=== PATIENT | female | born 1960 | race Hispanic/Latino ===

== ENCOUNTER 2019-03-03 15:23 | Emergency (ER) | payer BC ==
[2019-03-03] MEDS ORDERED: IBUPROFEN 400 MG TAB ONE (16:03)
[2019-03-03] MEDS ORDERED: HYDROCODONE/APAP 7.5/325 MG TAB ONE (16:04)
--- NOTE | 2019-03-03 17:00 | RAD REPORT ---
EXAM DESCRIPTION: RAD - Foot Left 3 View - 03/03/2019 4:25 pm CLINICAL HISTORY: fall;Pain COMPARISON: None FINDINGS: Left knee, tibia/ fibula and foot- multiple projections are submitted Mild degenerative changes are present in the knee and ankle. Large plantar calcaneal spur. Moderate s oft tissue swelling is seen anterior to the superior tibia. No significant joint effusion present.
--- NOTE | 2019-03-03 17:03 | RAD REPORT ---
EXAM DESCRIPTION: RAD - Tib Fib Right - 03/03/2019 4:25 pm CLINICAL HISTORY: fall;Pain COMPARISON: No comparisons FINDINGS: No fracture or dislocation seen. Large plantar calcaneal spur.
--- NOTE | 2019-03-03 17:25 | ER ---
Nurse's Notes [facility] Name: Aliza Hall Age: 58 yrs Sex: Female : 1960 Arrival Date: 03/03/2019 Time: 15:24 Bed 23 Private MD: Diagnosis: Pain in left knee;Fall on same level from slipping, tripping and stumbling;Pain in lower leg-bilateral;Pain in left foot;Abrasion of other part of head-right lower jaw Presentation: 03/03 15:28 Presenting complaint: Patient states: I slipped on some applesauce at [employer], hit both of la1 my knees, my head, and scraped my right eat. Denies LOC. Transition of care: patient was not received from another setting of care. Onset of symptoms was March 03, 2019. Risk Assessment: Do you want to hurt yourself or someone else? Patient reports no desire to harm self or others. Initial Sepsis Screen: Does the patient meet any 2 criteria? No. Patient's initial sepsis screen is negative. Does the patient have a suspected source of infection? No. Patient's initial sepsis screen is negative. Care prior to arrival: None. 15:28 Method Of Arrival: Wheelchair la1 15:28 Acuity: LO 4 la1 Historical: - Allergies: 15:29 No Known Allergies; la1 - PMHx: 15:29 None; la1 - Immunization history:: Adult Immunizations up to date. - Social history:: Smoking status: Patient/guardian denies using tobacco. - Ebola Screening: : No symptoms or risks identified at this time. Screenin:56 Abuse screen: Denies threats or abuse. Denies injuries from another. Nutritional mg2 screening: No deficits noted. Tuberculosis screening: No symptoms or risk factors identified. Fall Risk Fall in past 12 months (25 points). Ambulatory Aid- None/Bed Rest/Nurse Assist (0 pts). Assessment: 15:54 General: Appears in no apparent distress. comfortable, Behavior is calm, cooperative. mg2 Pain: Complains of pain in left knee and right leg and right foot Pain does not radiate. Pain currently is 5 out of 10 on a pain scale. Quality of pain is described as aching, Pain began suddenly. Neuro: Level of Consciousness is awake, alert, obeys commands, Oriented to person, place, time, situation. Cardiovascular: Capillary refill < 3 seconds Patient's skin is warm and dry. Respiratory: Airway is patent Respiratory effort is even, unlabored, Respiratory pattern is regular, symmetrical. GI: No signs and/or symptoms were reported involving the gastrointestinal system. : No signs and/or symptoms were reported regarding the genitourinary system. EENT: No signs and/or symptoms were reported regarding the EENT system. Derm: Skin is intact, is healthy with good turgor, Skin is pink, warm \T\ dry. normal. Musculoskeletal: Circulation, motion, and sensation intact. Capillary refill < 3 seconds, Swelling present in left leg and left knee. Vital Signs: 15:29 BP 148 / 93; Pulse 82; Resp 16; Temp 98.3; Pulse Ox 100% on R/A; Weight 136.08 kg; la1 Height 5 ft. 1 in. (154.94 cm); 16:30 BP 150 / 78; Pulse 75; Resp 18; Pulse Ox 100% ; mg2 17:15 BP 135 / 78; Pulse 80; Resp 18; Temp 98; Pulse Ox 100% on R/A; mg2 15:29 Body Mass Index 56.68 (136.08 kg, 154.94 cm) la1 ED Course: 15:24 Patient arrived in ED. as 15:28 Triage completed. la1 15:29 Arm band placed on right wrist. la1 15:30 Colby Lassiter PA is PHCP. cp 15:30 Shahid Maria MD is Attending Physician. cp 15:52 Dennys Shah, NAVEED is Primary Nurse. mg2 16:05 Patient has correct armband on for positive identification. Pulse ox on. NIBP on. Door mg2 closed. Ice pack to injury. 16:05 No provider procedures requiring assistance completed. Patient did not have IV access mg2 during this emergency room visit. 16:25 XRAY Tib Fib RIGHT In Process Unspecified. EDMS 16:25 XRAY Knee LEFT 3 view In Process Unspecified. EDMS 16:25 XRAY Tib Fib LEFT In Process Unspecified. EDMS 16:25 XRAY Foot LEFT 3 View In Process Unspecified. EDMS 17:00 Crutch training done. Arun wrap to left knee. right leg Knee immobilizer applied on left mg2 knee. 17:22 Daniel Glover MD is Referral Physician. cp Administered Medications: 16:02 Drug: Ibuprofen 800 mg Route: PO; mg2 17:17 Follow up: Response: No adverse reaction mg2 16:02 Drug: Hydrocodone-Acetaminophen (7.5 mg-325 mg) 1 tabs Route: PO; mg2 17:17 Follow up: Response: No adverse reaction mg2 Outcome: 17:24 Discharge ordered by MD. cp 17:56 Discharged to home via wheelchair, with crutches, with family. mg2 17:56 Condition: stable 17:56 Discharge instructions given to patient, family, Instructed on discharge instructions, follow up and referral plans. medication usage, crutch walking, Demonstrated understanding of instructions, follow-up care, medications, crutch walking, Prescriptions given X 2. 17:57 Patient left the ED. mg2 Signatures: Dispatcher [employer] EDMS Elena Davis Lee RN RN la1 Colby Lassiter PA PA cp Dennys Shah RN RN mg2
--- NOTE | 2019-03-03 17:25 | EDPHYS ---
Physician Documentation [facility] Name: Aliza Hall Age: 58 yrs Sex: Female : 1960 Arrival Date: 03/03/2019 Time: 15:24 Bed 23 Private MD: ED Physician Shahid Maria HPI: 03/03 15:55 This 58 yrs old Female presents to ER via Wheelchair with complaints of Fall cp Injury. 15:55 Details of fall: The patient fell from an upright position, while walking, and struck a cp tile surface. Onset: The symptoms/episode began/occurred just prior to arrival. Associated injuries: The patient sustained injury to the head, abrasion, right lower leg, abrasion, left knee and left lower leg and left foot, decreased range of motion, painful injury, swelling. Severity of symptoms: in the emergency department the symptoms are unchanged. Patient reports slip and fall on applesauce on floor at local grocery store causing injuries. Patient reports striking left lower jaw area against shelf causing abrasion. Denies striking head, denies loss of consciousness. Historical: - Allergies: 15:29 No Known Allergies; la1 - PMHx: 15:29 None; la1 - Immunization history:: Adult Immunizations up to date. - Social history:: Smoking status: Patient/guardian denies using tobacco. - Ebola Screening: : No symptoms or risks identified at this time. ROS: 16:00 Constitutional: Negative for body aches, chills, fever, poor PO intake. cp 16:00 Eyes: Negative for injury, pain, redness, and discharge. cp 16:00 ENT: Negative for drainage from ear(s), ear pain, sore throat, difficulty swallowing, difficulty handling secretions. 16:00 Cardiovascular: Negative for chest pain, edema, palpitations. 16:00 Respiratory: Negative for cough, shortness of breath, wheezing. 16:00 Abdomen/GI: Negative for abdominal pain, nausea, vomiting, and diarrhea. 16:00 Back: Negative for pain at rest, pain with movement. 16:00 MS/extremity: Positive for abrasion, decreased range of motion, pain, swelling, tenderness, of the right leg and left leg, Negative for paresthesias. 16:00 Skin: Positive for abrasion(s), of the right lower jaw. 16:00 Neuro: Negative for altered mental status, headache, loss of consciousness, syncope, weakness. 16:00 All other systems are negative. Exam: 16:10 Constitutional: The patient appears in no acute distress, alert, awake, cp non-diaphoretic, non-toxic, well developed, well nourished, obese. 16:10 Head/face: Noted is abrasion(s), that are mild, of the posterior right jaw, Sinus cp tenderness, is not appreciated. 16:10 Eyes: Periorbital structures: appear normal, Pupils: equal, round, and reactive to light and accomodation, Extraocular movements: intact throughout, Conjunctiva: normal, no exudate, no injection, Lids and lashes: appear normal, bilaterally. 16:10 ENT: External ear(s): are unremarkable, Ear canal(s): are normal, clear, TM's: bulging, is not appreciated, bilaterally, dullness, bilaterally, erythema, is not appreciated, bilaterally, Nose: is normal, Mouth: Lips: moist, Oral mucosa: pink and intact, moist, Posterior pharynx: is normal, airway is patent, no erythema, no exudate. 16:10 Neck: C-spine: vertebral tenderness, is not appreciated, crepitus, is not appreciated, ROM/movement: is normal, is supple, without pain, no range of motions limitations, no nuchal rigidity. 16:10 Chest/axilla: Inspection: normal, Palpation: is normal, no crepitus, no tenderness. 16:10 Cardiovascular: Rate: normal, Rhythm: regular. 16:10 Respiratory: the patient does not display signs of respiratory distress, Respirations: normal, no use of accessory muscles, no retractions, no splinting, no tachypnea, Breath sounds: are clear throughout, no decreased breath sounds, no stridor, no wheezing. 16:10 Abdomen/GI: Inspection: abdomen appears normal, Palpation: abdomen is soft and non-tender, in all quadrants, voluntary guarding, is not appreciated. 16:10 Back: pain, is absent, ROM is normal, vertebral tenderness, is not appreciated. 16:10 Musculoskeletal/extremity: Extremities: grossly normal except: noted in the right lower leg: abrasion, tenderness, There is no evidence of deformity, noted in the left lower leg: pain, swelling, tenderness, noted in the left foot: tenderness, Joints: the left knee displays limited range of motion, painful range of motion, swelling, tenderness, the left ankle displays swelling, tenderness. 16:10 Neuro: Orientation: to person, place \T\ time. Mentation: is normal, Motor: moves all fours, strength is normal, Sensation: is normal. Vital Signs: 15:29 BP 148 / 93; Pulse 82; Resp 16; Temp 98.3; Pulse Ox 100% on R/A; Weight 136.08 kg; la1 Height 5 ft. 1 in. (154.94 cm); 16:30 BP 150 / 78; Pulse 75; Resp 18; Pulse Ox 100% ; mg2 17:15 BP 135 / 78; Pulse 80; Resp 18; Temp 98; Pulse Ox 100% on R/A; mg2 15:29 Body Mass Index 56.68 (136.08 kg, 154.94 cm) la1 Procedures: 17:50 Splinting: Splint applied to left knee using knee immobilizer, applied by nurse. cp Examined by me, post splint application: neurovascular intact, Patient tolerated well. MDM: 15:31 Patient medically screened. cp 16:00 Differential diagnosis: abrasion, closed head injury, contusion, fracture, multiple cp trauma. 17:23 Data reviewed: vital signs, nurses notes, radiologic studies, plain films. cp 17:23 Test interpretation: by ED physician or midlevel provider: plain radiologic studies. cp Counseling: I had a detailed discussion with the patient and/or guardian regarding: the historical points, exam findings, and any diagnostic results supporting the discharge/admit diagnosis, radiology results, the need for outpatient follow up, a orthopedic surgeon, to return to the emergency department if symptoms worsen or persist or if there are any questions or concerns that arise at home. Response to treatment: the patient's symptoms have markedly improved after treatment, VSS. Pain improved with meds. Xrays reviewed and no fractures noted. Will discharge to home for continued monitoring. 03/03 15:53 Order name: XRAY Tib Fib RIGHT; Complete Time: 17:20 cp 03/03 15:53 Order name: XRAY Knee LEFT 3 view cp 03/03 15:53 Order name: XRAY Tib Fib LEFT cp 03/03 15:53 Order name: XRAY Foot LEFT 3 View; Complete Time: 17:20 cp 03/03 17:21 Interpretation: Reviewed report. cp 03/03 17:05 Order name: Arun wrap-joint: biloateral knees; Complete Time: 17:56 cp 03/03 17:05 Order name: Knee Immobilizer: left knee; Complete Time: 17:56 cp 03/03 17:11 Order name: Crutches; Complete Time: 17:56 cp 03/03 17:11 Order name: Crutch Training; Complete Time: 17:56 cp Administered Medications: 16:02 Drug: Ibuprofen 800 mg Route: PO; mg2 17:17 Follow up: Response: No adverse reaction mg2 16:02 Drug: Hydrocodone-Acetaminophen (7.5 mg-325 mg) 1 tabs Route: PO; mg2 17:17 Follow up: Response: No adverse reaction mg2 Disposition: 18:00 Chart complete. cp Disposition: 03/03/19 17:24 Discharged to Home. Impression: Pain in left knee, Fall on same level from slipping, tripping and stumbling, Pain in lower leg - bilateral, Pain in left foot, Abrasion of other part of head - right lower jaw. - Condition is Stable. - Discharge Instructions: Abrasion, Elastic Bandage and RICE, Knee Immobilizer, Musculoskeletal Pain, Knee Pain. - Prescriptions for Ibuprofen 800 mg Oral Tablet - take 1 tablet by ORAL route every 8 hours As needed take with food; 30 tablet. Tramadol 50 mg Oral Tablet - take 1 tablet by ORAL route every 8 hours as needed; 20 tablet. - Work release form, Medication Reconciliation Form, Thank You Letter, Antibiotic Education, Prescription Opioid Use form. - Follow up: Daniel Glover MD; When: 2 - 3 days; Reason: Recheck today's complaints. - Problem is new. - Symptoms have improved. Addendum: 03/06/2019 00:42 Co-signature as Attending Physician, Shahid Maria MD. r n Signatures: Dispatcher [employer] EDShahid Alex MD MD rn Attema, Lee, RN RN la1 Cloby Lassiter PA PA cp Gardose, Michele, RN RN mg2 Corrections: (The following items were deleted from the chart) 03/03 17:57 17:24 03/03/2019 17:24 Discharged to Home. Impression: Pain in left knee; Fall on same mg2 level from slipping, tripping and stumbling; Pain in lower leg - bilateral; Pain in left foot; Abrasion of other part of head - right lower jaw. Condition is Stable. Forms are Medication Reconciliation Form, Thank You Letter, Antibiotic Education, Prescription Opioid Use. Follow up: Daniel Glover; When: 2 - 3 days; Reason: Recheck today's complaints. Problem is new. Symptoms have improved. cp
[2019-03-03 21:27] VITALS: BP 148/93; TEMP 98.3; O2SAT 100
--- NOTE | 2019-03-04 11:35 | RAD REPORT ---
EXAM DESCRIPTION: RAD - Tib Fib Left - 03/03/2019 4:25 pm CLINICAL HISTORY: Fall;Pain COMPARISON: None FINDINGS: Left knee, tibia/ fibula and foot- multiple projections are submitted Mild degenerative changes are present in the knee and ankle. Large plantar calcaneal spur. Moderate s oft tissue swelling is seen anterior to the superior tibia. No significant joint effusion present.
== END 2019-03-03 17:57 | disposition home or self-care (01) ==
LOC: ER 15:23
DX: S00.81XA Abrasion of other part of head, initial encounter (principal); M79.662 Pain in left lower leg; M79.661 Pain in right lower leg; M79.672 Pain in left foot; M25.562 Pain in left knee; W01.0XXA Fall on same level from slipping, tripping and stumbling without subsequent striking against object, initial encounter; Y93.89 Activity, other specified; Y92.512 Supermarket, store or market as the place of occurrence of the external cause
CPT/HCPCS: 99284

== ENCOUNTER 2019-12-28 05:55 | Emergency (ER) | payer BC ==
[2019-12-28] MEDS ORDERED: MORPHINE 2 MG/ML SYR ONE ×2 (07:29→08:57)
[2019-12-28] MEDS ORDERED: KETOROLAC 30 MG/ML INJ ONE (07:29)
[2019-12-28] MEDS ORDERED: ONDANSETRON 4 MG/2 ML VIAL ONE (07:30)
[2019-12-28] MEDS ORDERED: NA CHLORIDE 0.9% 500 ML ONE (07:30)
[2019-12-28 07:47] LABS: Absolute Lymphocytes (CBC) 1.4 K/uL (0.7-4.9); Basophils % 0.3 % (0-1.3); Hematocrit 45.2 % (36.0-45.0); Lymphocytes % 25.2 % (15.3-44.8); MPV 8.5 fL (7.6-11.3); RBC Red Blood Cell Count 5.15 M/uL (3.86-4.86)
[2019-12-28 08:04] LABS: ALT/SGPT 40 U/L (12-78); AST/SGOT 28 U/L (15-37); Albumin 3.6 g/dL (3.4-5.0); Alkaline Phosphatase 115 U/L (45-117); BUN Blood Urea Nitrogen 11 mg/dL (7-18); Bicarbonate 31 mmol/L (21-32); Bilirubin Total 0.7 mg/dL (0.2-1.0); Glucose Level 103 mg/dL (74-106); Potassium 3.8 mmol/L (3.5-5.1); Protein, Total 7.6 g/dL (6.4-8.2); Sodium Level 142 mmol/L (136-145); Uric Acid 4.6 mg/dL (2.6-6.0)
[2019-12-28] MEDS ORDERED: dexAMETHasone 10 MG/ML VIAL ONE (08:17)
--- NOTE | 2019-12-28 09:49 | RAD REPORT ---
EXAM DESCRIPTION: RAD - Foot Left 3 View - 12/28/2019 7:46 am CLINICAL HISTORY: PAIN, nontraumatic foot pain, non weight-bearing due to pain COMPARISON: Foot Left 3 View dated 03/03/2019 FINDINGS: No fracture, dislocation or periosteal reaction. No acute or destructive bony process. La rge plantar spur is present. Minimal spurring in the articular margins of the tarsal bones. No air or foreign body in the soft tissues. Mild edema is evident in the soft tissues but this is not clearly different from comparison. IMPRESSION: No acute bone or joint finding. Patient has large plantar spur. No significant change from comparison.
--- NOTE | 2019-12-28 09:50 | ER ---
Nurse's Notes [facility] Name: Aliza Hall Age: 59 yrs Sex: Female : 1960 Arrival Date: 12/28/2019 Time: 05:56 Bed 20 Private MD: Diagnosis: Pain in left foot Presentation: 12/27 06:26 Chief complaint: Patient states: " Monday I noticed my left foot started hurting by vc I could walk on it but it hurt really bad. Come yesterday afternoon I could barely put any weight on it because it hurt so bad. I have been off of it yesterday since 4 pm and it hasn't gotten any better. I have always had trouble with my legs but this is bad.". Coronavirus screen: At this time, the client does not indicate any symptoms associated with coronavirus-19. Ebola Screen: No symptoms or risks identified at this time. Initial Sepsis Screen: Does the patient meet any 2 criteria? No. Patient's initial sepsis screen is negative. Does the patient have a suspected source of infection? No. Patient's initial sepsis screen is negative. Risk Assessment: Do you want to hurt yourself or someone else? Patient reports no desire to harm self or others. Onset of symptoms was December 24, 2019. 06:26 Method Of Arrival: Wheelchair vc 06:26 Acuity: LO 3 vc Triage Assessment: 06:32 General: Appears in no apparent distress. uncomfortable, obese, Behavior is calm, vc cooperative, appropriate for age. Pain: Complains of pain in left foot Pain does not radiate. Pain currently is 10 out of 10 on a pain scale. Quality of pain is described as pressure, sharp, Pain began gradually, Is continuous, Alleviated by rest, Aggravated by increased activity, repositioning, weight bearing. Historical: - Allergies: 06:31 No Known Allergies; vc - Home Meds: 06:31 None [Active]; vc - PMHx: 06:31 DVT; vc - PSHx: 06:31 None; vc - Immunization history:: Adult Immunizations up to date. - Social history:: Smoking status: Patient denies any tobacco usage or history of. Screenin:32 Abuse screen: Denies threats or abuse. Nutritional screening: No deficits noted. vc Tuberculosis screening: No symptoms or risk factors identified. Fall Risk None identified. Assessment: 06:34 General: Appears in no apparent distress. Behavior is calm, cooperative, appropriate vc for age. Pain: Complains of pain in left foot. Neuro: Level of Consciousness is awake, alert, obeys commands, Oriented to person, place, time, situation, Appropriate for age. Cardiovascular: Capillary refill < 3 seconds is sluggish Pulses are palpable in right dorsalis pedis artery and left dorsalis pedis artery Edema is noted to left leg and foot. Respiratory: Airway is patent Respiratory effort is even, unlabored, Respiratory pattern is regular, symmetrical. GI: No signs and/or symptoms were reported involving the gastrointestinal system. : No signs and/or symptoms were reported regarding the genitourinary system. Derm: Skin is intact, Skin is dusky, Skin temperature is cool. Musculoskeletal: Range of motion: limited in left ankle. 08:20 Reassessment: Patient appears in no apparent distress at this time. Patient and/or em family updated on plan of care and expected duration. Pain level reassessed. Patient is alert, oriented x 3, equal unlabored respirations, skin warm/dry/pink. reports pain is the same, 10/08 provider notified. 09:02 Reassessment: US at bedside. ss 10:00 Reassessment: Patient appears in no apparent distress at this time. Patient and/or em family updated on plan of care and expected duration. Pain level reassessed. Patient is alert, oriented x 3, equal unlabored respirations, skin warm/dry/pink. Patient states feeling better. 10:05 Reassessment: pt will apply boot at home, does not want it on currently. em Vital Signs: 06:26 BP 124 / 65; Pulse 70; Resp 12; Temp 98.4(O); Pulse Ox 97% on R/A; Weight 131.54 kg; vc Height 5 ft. 1 in. (154.94 cm); Pain 10/10; 08:20 BP 115 / 65; Pulse 74; Resp 18; Pulse Ox 99% on R/A; Pain 6/10; em 09:25 BP 131 / 68; Pulse 64; Resp 18; Pulse Ox 99% on R/A; em 06:26 Body Mass Index 54.79 (131.54 kg, 154.94 cm) vc ED Course: 05:56 Patient arrived in ED. cf2 06:25 Saumya Harris, NAVEED is Primary Nurse. vc 06:31 Triage completed. vc 06:33 Arm band placed on. vc 06:33 Patient has correct armband on for positive identification. Bed in low position. Call vc light in reach. Pulse ox on. NIBP on. Warm blanket given. 06:46 Colby Monson MD is Attending Physician. carine 07:46 Foot Left 3 View XRAY In Process Unspecified. EDMS 08:12 Colby Lassiter PA is PHCP. cp 09:29 US Extremity Venous W Compression Fabricio In Process Unspecified. EDMS 09:49 Dileep Cameron DPM is Referral Physician. cp 10:18 No provider procedures requiring assistance completed. IV discontinued, intact, em bleeding controlled, No redness/swelling at site. Pressure dressing applied. Administered Medications: 07:30 Drug: NS 0.9% 500 ml Route: IV; Rate: bolus; Site: right antecubital; em 09:00 Follow up: IV Status: Completed infusion; IV Intake: 500ml em 07:32 Drug: Zofran (Ondansetron) 4 mg Route: IVP; Site: right antecubital; em 08:20 Follow up: Response: No adverse reaction em 07:33 Drug: morphine 2 mg Route: IVP; Site: right antecubital; em 08:20 Follow up: Response: No adverse reaction; Pain is unchanged, physician notified; RASS: em Alert and Calm (0) 07:35 Drug: TORadol 30 mg Route: IVP; Site: right antecubital; em 08:20 Follow up: Response: No adverse reaction; Pain is unchanged, physician notified em 08:59 Drug: Decadron - Dexamethasone 10 mg Route: IVP; Site: right antecubital; em 10:00 Follow up: Response: No adverse reaction em 09:01 Drug: morphine 2 mg Route: IVP; Site: right antecubital; em 10:00 Follow up: Response: No adverse reaction; Marked relief of symptoms; Pain is decreased; em RASS: Alert and Calm (0) Intake: 09:00 IV: 500ml; Total: 500ml. em Outcome: 09:49 Discharge ordered by . cp 10:20 Discharged to home via wheelchair. em 10:20 Condition: good 10:20 Discharge instructions given to patient, Instructed on discharge instructions, follow up and referral plans. no drinking with medication, no driving heavy equipment, medication usage, Demonstrated understanding of instructions, follow-up care, medications, Prescriptions given X 3. 10:22 Patient left the ED. em Signatures: Dispatcher [employer] Colby Santos MD MD cha Munoz, Edgar RN RN Mariela Pompa RN RN ss Page, Corey, PA PA cp Frazier, Celesta [facility] Saumya Harris RN RN vc
--- NOTE | 2019-12-28 09:50 | EDPHYS ---
Physician Documentation [facility] Name: Aliza Hall Age: 59 yrs Sex: Female : 1960 Arrival Date: 12/28/2019 Time: 05:56 Bed 20 Private MD: SHAHEED Physician Colby Monson HPI: 12/27 07:41 This 59 yrs old Female presents to ER via Wheelchair with complaints of Foot carine Pain. 07:41 The patient presents with decreased range of motion, pain, that is acute. The carine complaints affect the left foot, arch of left foot. Context: The problem was sustained at an unknown location, resulted from an unknown cause, Mechanism of Injury: Unknown the patient can partially bear weight, must have assistance. Historical: - Allergies: 06:31 No Known Allergies; vc - Home Meds: :31 None [Active]; vc - PMHx: : DVT; vc - PSHx: 06:31 None; vc - Immunization history:: Adult Immunizations up to date. - Social history:: Smoking status: Patient denies any tobacco usage or history of. ROS: 07:47 Constitutional: Negative for fever, chills, and weight loss, Eyes: Negative for injury, acrine pain, redness, and discharge, ENT: Negative for injury, pain, and discharge, Neck: Negative for injury, pain, and swelling, Cardiovascular: Negative for chest pain, palpitations, and edema, Respiratory: Negative for shortness of breath, cough, wheezing, and pleuritic chest pain, Abdomen/GI: Negative for abdominal pain, nausea, vomiting, diarrhea, and constipation, Back: Negative for injury and pain, : Negative for injury, bleeding, discharge, and swelling, Skin: Negative for injury, rash, and discoloration, Neuro: Negative for headache, weakness, numbness, tingling, and seizure, Psych: Negative for depression, anxiety, suicide ideation, homicidal ideation, and hallucinations, Allergy/Immunology: Negative for hives, rash, and allergies, Endocrine: Negative for neck swelling, polydipsia, polyuria, polyphagia, and marked weight changes, Hematologic/Lymphatic: Negative for swollen nodes, abnormal bleeding, and unusual bruising. 07:47 MS/extremity: Positive for decreased range of motion, pain, tenderness, of the lateral side of left foot, instep of left foot and arch of left foot. Exam: 07:47 Constitutional: This is a well developed, well nourished patient who is awake, alert, carine and in no acute distress. Head/Face: Normocephalic, atraumatic. Eyes: Pupils equal round and reactive to light, extra-ocular motions intact. Lids and lashes normal. Conjunctiva and sclera are non-icteric and not injected. Cornea within normal limits. Periorbital areas with no swelling, redness, or edema. ENT: Nares patent. No nasal discharge, no septal abnormalities noted. Tympanic membranes are normal and external auditory canals are clear. Oropharynx with no redness, swelling, or masses, exudates, or evidence of obstruction, uvula midline. Mucous membranes moist. Neck: Trachea midline, no thyromegaly or masses palpated, and no cervical lymphadenopathy. Supple, full range of motion without nuchal rigidity, or vertebral point tenderness. No Meningismus. Chest/axilla: Normal chest wall appearance and motion. Nontender with no deformity. No lesions are appreciated. Cardiovascular: Regular rate and rhythm with a normal S1 and S2. No gallops, murmurs, or rubs. Normal PMI, no JVD. No pulse deficits. Respiratory: Lungs have equal breath sounds bilaterally, clear to auscultation and percussion. No rales, rhonchi or wheezes noted. No increased work of breathing, no retractions or nasal flaring. Abdomen/GI: Soft, non-tender, with normal bowel sounds. No distension or tympany. No guarding or rebound. No evidence of tenderness throughout. Back: No spinal tenderness. No costovertebral tenderness. Full range of motion. Skin: Warm, dry with normal turgor. Normal color with no rashes, no lesions, and no evidence of cellulitis. Neuro: Awake and alert, GCS 15, oriented to person, place, time, and situation. Cranial nerves II-XII grossly intact. Motor strength 5/5 in all extremities. Sensory grossly intact. Cerebellar exam normal. Normal gait. Psych: Awake, alert, with orientation to person, place and time. Behavior, mood, and affect are within normal limits. 07:47 Musculoskeletal/extremity: Extremities: noted in the lateral side of left foot, instep of left foot and arch of left foot: decreased ROM, pain, ROM: limited active range of motion, limited passive range of motion, in the left foot, Circulation is intact in all extremities. Pulses: noted to be 4+ in the bilateral radial, brachial, femoral, popliteal, posterior tibial and and dorsalis pedis arteries., Sensation intact. Compartment Syndrome exam of affected extremity: is normal. no numbness, no tingling, no sensation deficit, no palor, no weak pulses, DVT Exam: no swelling, negative Homans' sign noted on exam, no appreciated bluish discoloration, no erythema, no increased warmth, pain, tenderness. Vital Signs: 06:26 BP 124 / 65; Pulse 70; Resp 12; Temp 98.4(O); Pulse Ox 97% on R/A; Weight 131.54 kg; vc Height 5 ft. 1 in. (154.94 cm); Pain 10/10; 08:20 BP 115 / 65; Pulse 74; Resp 18; Pulse Ox 99% on R/A; Pain 6/10; em 09:25 BP 131 / 68; Pulse 64; Resp 18; Pulse Ox 99% on R/A; em 06:26 Body Mass Index 54.79 (131.54 kg, 154.94 cm) vc MDM: 06:46 Patient medically screened. [facility] 07:49 Data reviewed: vital signs, nurses notes, lab test result(s), radiologic studies, carine doppler, plain films. 09:21 Test interpretation: by ED physician or midlevel provider: xrays of left foot negative cp for fracture. 12/27 07:11 Order name: CBC with Diff; Complete Time: 07:54 [facility] 12/27 08:28 Interpretation: Normal except: RBC 5.15; HGB 15.1; HCT 45.2. cp 12/27 07:11 Order name: Comprehensive Metabolic Panel; Complete Time: 08:27 [facility] 12/27 08:27 Interpretation: Normal except: A/G 0.9; GLOB 4.0. cp 12/27 07:11 Order name: Foot Left 3 View XRAY [facility] 12/27 07:11 Order name: US Extremity Venous W Compression Fabricio [facility] 12/27 07:11 Order name: Uric Acid; Complete Time: 08:27 [facility] 12/27 07:50 Order name: Sed Rate; Complete Time: 09:19 [facility] 12/27 07:54 Order name: Walking boot: short boot; Complete Time: 10:21 [facility] Administered Medications: 07:30 Drug: NS 0.9% 500 ml Route: IV; Rate: bolus; Site: right antecubital; em 09:00 Follow up: IV Status: Completed infusion; IV Intake: 500ml em 07:32 Drug: Zofran (Ondansetron) 4 mg Route: IVP; Site: right antecubital; em 08:20 Follow up: Response: No adverse reaction em 07:33 Drug: morphine 2 mg Route: IVP; Site: right antecubital; em 08:20 Follow up: Response: No adverse reaction; Pain is unchanged, physician notified; RASS: em Alert and Calm (0) 07:35 Drug: TORadol 30 mg Route: IVP; Site: right antecubital; em 08:20 Follow up: Response: No adverse reaction; Pain is unchanged, physician notified em 08:59 Drug: Decadron - Dexamethasone 10 mg Route: IVP; Site: right antecubital; em 10:00 Follow up: Response: No adverse reaction em 09:01 Drug: morphine 2 mg Route: IVP; Site: right antecubital; em 10:00 Follow up: Response: No adverse reaction; Marked relief of symptoms; Pain is decreased; em RASS: Alert and Calm (0) Disposition: 12/28 08:45 Co-signature as Attending Physician, Colby Monson MD I agree with the assessment and [facility] plan of care. Disposition: 12/28/19 09:49 Discharged to Home. Impression: Pain in left foot. - Condition is Stable. - Discharge Instructions: Musculoskeletal Pain, Pain Without a Known Cause, Cryotherapy, [id number]-[id number], Cryotherapy, Foot Pain. - Prescriptions for Tylenol- Codeine #3 300-30 mg Oral Tablet - take 2 tablets by ORAL route every 6 hours As needed; 20 tablet. Diclofenac Sodium 75 mg Oral Tablet, Delayed Release (E.C.) - take 1 tablet by ORAL route 2 times per day; 14 tablet. Medrol (Tay) 4 mg Oral Tablets, Dose Pack - take 1 tablet by ORAL route as directed - follow package instructions; 1 packet. - Medication Reconciliation Form, Thank You Letter, Antibiotic Education, Prescription Opioid Use form. - Follow up: Private Physician; When: 2 - 3 days; Reason: Recheck today's complaints, Continuance of care, Re-evaluation by your physician. Follow up: Dr. Dileep Cameron; When: 2 - 3 days; Reason: Recheck today's complaints, Re-evaluation by your physician. - Problem is new. - Symptoms have improved. Signatures: Dispatcher [employer] Colby Santos MD MD cha Munoz, Edgar RN RN Colby Gonzalez, PA Saumya Austin cp, RN RN vc Corrections: (The following items were deleted from the chart) 12/27 08: 08:27 Within normal limits. cp cp 08: 08: Normal except. cp cp 08: 08: Normal except: A/G 0.9. cp cp 10:22 09:49 12/28/2019 09:49 Discharged to Home. Impression: Pain in left foot. Condition is em Stable. Discharge Instructions: Musculoskeletal Pain, Pain Without a Known Cause, Cryotherapy, [id number]-[id number], Cryotherapy, Foot Pain. Prescriptions for Tylenol-Codeine #3 300-30 mg Oral Tablet - take 2 tablets by ORAL route every 6 hours As needed; 824 tablet, Diclofenac Sodium 75 mg Oral Tablet, Delayed Release (E.C.) - take 1 tablet by ORAL route 2 times per day; 14 tablet, Medrol (Tay) 4 mg Oral Tablets, Dose Pack - take 1 tablet by ORAL route as directed - follow package instructions; 1 packet. and Forms are Medication Reconciliation Form, Thank You Letter, Antibiotic Education, Prescription Opioid Use. Follow up: Private Physician; When: 2 - 3 days; Reason: Recheck today's complaints, Continuance of care, Re-evaluation by your physician. Follow up: Dr. Dileep Cameron; When: 2 - 3 days; Reason: Recheck today's complaints, Re-evaluation by your physician. Problem is new. Symptoms have improved. cp
--- NOTE | 2019-12-28 12:03 | RAD REPORT ---
EXAM DESCRIPTION: US - Extrem Venous W Compress Fabricio - 12/28/2019 11:58 am CLINICAL HISTORY: PAIN COMPARISON: None. TECHNIQUE: Real-time sonographic evaluation of the bilateral lower extremity common femoral, superfi cial femoral, popliteal and posterior tibial veins was performed. FINDINGS: Normal compressibility, flow augmentation, phasic flow and spontaneous flow are identified in the left and right lower extremity common femoral, superficial femoral, popliteal and posterior t ibial veins. No intraluminal filling defects seen. IMPRESSION: No DVT in either lower extremity.
[2019-12-31 22:14] VITALS: TEMP 98.4
[2019-12-31 22:15] VITALS: O2SAT 99
[2019-12-31 22:16] VITALS: BP 131/68
== END 2019-12-28 10:22 | disposition home or self-care (01) ==
LOC: ER 05:55
DX: M79.672 Pain in left foot (principal); Z86.718 Personal history of other venous thrombosis and embolism
CPT/HCPCS: 96361; 85025; 36415; 84550; 85652; 80053; 73630; 93970; 96375; 96374; 99284; J1100; J2270 ×2; J7040; J2405

== ENCOUNTER 2020-06-29 15:36 | Emergency (ER) | payer BC ==
--- OUTSIDE RECORDS SUMMARY | 2020-06-29 15:39 | XMS REPORT | Continuity of Care Document ---
:1960 Author Organization [facility] t Address [address] [place] [address] Care Team Providers Name Role Phone Lab, Fam Pob I Attending Clinician Unavailable Doctor Unassigned, Name Attending Clinician Unavailable Problems This patient has no known problems. Allergies, Adverse Reactions, Alerts This patient has no known allergies or adverse reactions. Medications This patient has no known medications. Procedures This patient has no known procedures. Encounters Start End Encounter Admission Attending Care Care Encounter Source Date/Time Date/Time Type Type Clinicians Facility Department ID 2020-06-28 2020-06-28 Laboratory Lab, [facility] [id number] 15:01:56 15:21:56 Only Fam Pob I Health [id number] [place] [id number] [facility]io [id number] [address] 2020-06-28 2020-06-28 Letter Doctor BERNARD [id number] 00:00:00 00:00:00 (Out) Unassigned, DEANN [id number] [facility] [id number] Results This patient has no known results.
[2020-06-29 16:42] LABS: Absolute Lymphocytes (CBC) 1.2 K/uL (0.7-4.9); Basophils % 0.4 % (0-1.3); Hematocrit 49.9 % (36.0-45.0); Lymphocytes % 40.5 % (15.3-44.8); MPV 8.8 fL (7.6-11.3); RBC Red Blood Cell Count 5.68 M/uL (3.86-4.86)
[2020-06-29 16:46] LABS: Protime INR 0.99
[2020-06-29 16:59] LABS: ALT/SGPT 47 U/L (12-78); AST/SGOT 39 U/L (15-37); Albumin 3.5 g/dL (3.4-5.0); Alkaline Phosphatase 133 U/L (45-117); BUN Blood Urea Nitrogen 10 mg/dL (7-18); Bicarbonate 31 mmol/L (21-32); Bilirubin Direct 0.1 mg/dL (0-0.2); Bilirubin Total 0.4 mg/dL (0.2-1.0); Ferritin 75.1 ng/mL (8-388); Glucose Level 89 mg/dL (74-106); Lipase 116 U/L (73-393); Potassium 3.7 mmol/L (3.5-5.1); Protein, Total 7.6 g/dL (6.4-8.2); Sodium Level 144 mmol/L (136-145); Troponin (Emerg Dept Use Only) < 0.02 ng/mL (0.0-0.045)
[2020-06-29] MEDS ORDERED: NA CHLORIDE 0.9% 500 ML ONE (17:19)
--- NOTE | 2020-06-29 17:35 | RAD REPORT ---
EXAM DESCRIPTION: RAD - Chest Single View - 06/29/2020 5:29 pm CLINICAL HISTORY: DYSPNEA Chest pain. COMPARISON: No comparisons FINDINGS: Portable technique limits examination quality. Moderate opacity is seen in the right mid lung laterally likely representing infiltrate/pneumonia. Th e heart is upper limit of normal in size. No displaced fractures.
--- NOTE | 2020-06-29 18:12 | RAD REPORT ---
EXAM DESCRIPTION: CT - Chest For Pe Angio - 06/29/2020 6:05 pm CLINICAL HISTORY: Chest pain. DYSPNEA COMPARISON: No comparisons TECHNIQUE: CT angiogram of the pulmonary arteries was performed with MIP. All CT scans are performed using dose optimization technique as appropriate and may include automated exposure control or mA/KV adjustment according to patient size. FINDINGS: No evidence of pulmonary thromboembolism. No acute aortic finding demonstrated. There is a moderate sized area of consolidation in the posterior right upper lobe. There is a small i nfiltrate in the medial left lung base. No significant pericardial or pleural fluid. No concerning bony finding. Prominent left hepatic lobe cyst. IMPRESSION: No evidence of pulmonary thromboembolism. Moderate sized area of lung consolidation posterior right upper lobe most likely representing pneumon ia. Small infiltrate also present medial left base.
--- NOTE | 2020-06-29 18:23 | EDPHYS ---
Physician Documentation [facility] Name: Aliza Hall Age: 60 yrs Sex: Female : 1960 Arrival Date: 06/29/2020 Time: 15:39 Bed 5 Private MD: ED Physician Shahid Maria HPI: 06/29 18:46 This 60 yrs old Female presents to ER via Ambulatory with complaints of kb Shortness Of Breath - covid+. 18:46 The patient has shortness of breath at rest. Onset: The symptoms/episode began/occurred kb yesterday, and became worse today. Duration: The symptoms are continuous. The patient's shortness of breath is aggravated by exertion, is alleviated by rest. Associated signs and symptoms: Pertinent positives: non-productive cough. Severity of symptoms: At their worst the symptoms were moderate in the emergency department the symptoms are unchanged. The patient has not experienced similar symptoms in the past. The patient has been recently seen by a physician: yesterday, with similar presenting complaints, and apparently given a diagnosis of covid. Pt reports shortness of breath and cough. STates she tested positive for covid yesterday. measured o2 sat at home today and it was 70 so she came in. Historical: - Allergies: 15:49 No Known Allergies; ca1 - Home Meds: 15:49 None [Active]; ca1 - PMHx: 15:49 DVT; ca1 - PSHx: 15:49 Tonsillectomy; Tubal ligation; ca1 - Immunization history:: Flu vaccine is up to date. - Social history:: Smoking status: Patient denies any tobacco usage or history of. ROS: 18:43 Constitutional: Negative for fever, chills, and weight loss, Cardiovascular: Negative kb for chest pain, palpitations, and edema, Abdomen/GI: Negative for abdominal pain, nausea, vomiting, diarrhea, and constipation, Back: Negative for injury and pain, MS/Extremity: Negative for injury and deformity, Skin: Negative for injury, rash, and discoloration, Neuro: Negative for headache, weakness, numbness, tingling, and seizure. 18:43 Respiratory: Positive for cough, dyspnea on exertion, shortness of breath. Exam: 18:23 ECG was reviewed by the Attending Physician. kb 18:45 Constitutional: This is a well developed, well nourished patient who is awake, alert, kb and in no acute distress. Head/Face: Normocephalic, atraumatic. Chest/axilla: Normal chest wall appearance and motion. Nontender with no deformity. No lesions are appreciated. Cardiovascular: Regular rate and rhythm with a normal S1 and S2. No gallops, murmurs, or rubs. Normal PMI, no JVD. No pulse deficits. Respiratory: Lungs have equal breath sounds bilaterally, clear to auscultation and percussion. No rales, rhonchi or wheezes noted. No increased work of breathing, no retractions or nasal flaring. Abdomen/GI: Soft, non-tender, with normal bowel sounds. No distension or tympany. No guarding or rebound. No evidence of tenderness throughout. Skin: Warm, dry with normal turgor. Normal color with no rashes, no lesions, and no evidence of cellulitis. MS/ Extremity: Pulses equal, no cyanosis. Neurovascular intact. Full, normal range of motion. 18:45 Neuro: Orientation: is normal, Mentation: is normal, Motor: is normal, Sensation: is normal, Gait: is steady. Vital Signs: 15:46 BP 126 / 106; Pulse 83; Resp 18 S; Temp 97.7(TE); Pulse Ox 98% on R/A; Weight 131.54 kg ca1 (R); Height 5 ft. 1 in. (154.94 cm) (R); Pain 6/10; 16:51 BP 129 / 73; Pulse 78; Resp 18; Pulse Ox 96% on R/A; mh5 18:00 BP 147 / 88; Pulse 81; Resp 16; Pulse Ox 99% ; bp 15:46 Body Mass Index 54.79 (131.54 kg, 154.94 cm) ca1 MDM: 15:51 Patient medically screened. kb 18:42 Data reviewed: vital signs, nurses notes. Data interpreted: Pulse oximetry: on room air kb is 99 %. Interpretation: normal. Counseling: I had a detailed discussion with the patient and/or guardian regarding: the historical points, exam findings, and any diagnostic results supporting the discharge/admit diagnosis, lab results, radiology results, the need for outpatient follow up, a family practitioner, to return to the emergency department if symptoms worsen or persist or if there are any questions or concerns that arise at home. 18:49 ED course: Pt's oxygen sat 98% after walking from lobby to room. o2 sat 96-100% during kb entire ER visit. Educated on diagnostic results and plan to treat outpatient. Educated to return for worsening symptoms or concerns. . 06/29 15:51 Order name: BMP kb 06/29 15:51 Order name: C-Reactive Protein kb 06/29 15:51 Order name: CBC with Diff kb 06/29 15:51 Order name: D-Dimer kb 06/29 15:51 Order name: Ferritin kb 06/29 15:51 Order name: Lactate kb 06/29 15:51 Order name: LFT's; Complete Time: 17:00 kb 06/29 15:51 Order name: Lipase; Complete Time: 17:00 kb 06/29 15:51 Order name: Procalcitonin; Complete Time: 17:14 kb 06/29 15:51 Order name: PT-INR; Complete Time: 16:58 kb 06/29 15:51 Order name: Ptt, Activated; Complete Time: 16:58 kb 06/29 15:51 Order name: Troponin (emerg Dept Use Only); Complete Time: 17:00 kb 06/29 15:52 Order name: Blood Culture EDMS 06/29 15:51 Order name: CXR XRAY; Complete Time: 17:36 kb 06/29 15:51 Order name: EKG; Complete Time: 15:53 kb 06/29 15:51 Order name: Cardiac monitoring; Complete Time: 16:14 kb 06/29 15:51 Order name: Droplet/Contact Precautions; Complete Time: 16:14 kb 06/29 15:51 Order name: EKG - Nurse/Tech; Complete Time: 16:28 kb 06/29 15:52 Order name: Basic Metabolic Panel; Complete Time: 17:00 EDMS 06/29 15:52 Order name: C-Reactive Protein; Complete Time: 17:00 EDMS 06/29 15:52 Order name: CBC with Automated Diff; Complete Time: 16:47 EDMS 06/29 15:52 Order name: D-Dimer; Complete Time: 16:58 EDMS 06/29 15:52 Order name: Ferritin; Complete Time: 17:00 EDMS 06/29 15:52 Order name: Lactate; Complete Time: 16:58 EDMS 06/29 16:59 Order name: CT Chest For PE Angio; Complete Time: 18:13 kb 06/29 15:51 Order name: IV Start; Complete Time: 16:28 kb 06/29 15:51 Order name: Labs collected and sent; Complete Time: 16:28 kb 06/29 15:51 Order name: O2 Per Protocol; Complete Time: 16:14 kb 06/29 15:51 Order name: O2 Sat Monitoring; Complete Time: 16:14 kb EC:23 Rate is 79 beats/min. Rhythm is regular. QRS [place] is Normal. NE interval is normal at kb 148 msec. QRS interval is normal at 76 msec. QT interval is normal at 348 msec. Administered Medications: 17:04 Drug: NS 0.9% 500 ml Route: IV; Rate: bolus; Site: right forearm; bp 18:30 Follow up: IV Status: Completed infusion; IV Intake: 500ml bp 18:40 Drug: Rocephin 1 grams Route: IV; Rate: calculated rate; Site: right antecubital; bp 19:10 Follow up: Response: No adverse reaction; IV Status: Completed infusion ea 18:40 Drug: Zithromax 500 mg Route: PO; bp 19:10 Follow up: Response: No adverse reaction ea 18:40 Drug: SOLU-Medrol 125 mg Route: IVP; Site: right antecubital; bp 19:10 Follow up: Response: No adverse reaction ea Disposition: 06/30 07:01 Co-signature as Attending Physician, Shahid Maria MD. rn Disposition: 06/29/20 18:22 Discharged to Home. Impression: Coronavirus infection, unspecified, Pneumonia, unspecified organism. - Condition is Stable. - Discharge Instructions: Community-Acquired Pneumonia, Adult, Cbwy-eo-Dtzg, Viral Respiratory Infection, Urtb-Qg-Fldh, COVID-19. - Prescriptions for Prednisone 20 mg Oral Tablet - take 1 tablet by ORAL route once daily for 5 days; 5 tablet. Albuterol Sulfate 90 mcg/actuation - inhale 1-2 puff by INHALATION route every 4-6 hours; 1 Inhaler. Zithromax 500 mg Oral Tablet - take 1 tablet by ORAL route once daily for 5 days; 5 tablet. - Medication Reconciliation Form, Thank You Letter, Antibiotic Education, Prescription Opioid Use form. - Follow up: Emergency Department; When: As needed; Reason: Worsening of condition. Follow up: Private Physician; When: 2 - 3 days; Reason: Recheck today's complaints, Continuance of care, Re-evaluation by your physician. Signatures: Dispatcher [employer] [facility] Kathrin Turner, MANUFACTURING SYSTEMS ENGINEER-C MANUFACTURING SYSTEMS ENGINEER-CkShahid Lazar MD MD rn Eva Liriano, RN Dileep Turpin ea, RN RN bp Louisa Perea RN RN ca1 Corrections: (The following items were deleted from the chart) 06/29 16:29 15:52 BLOOD CULTURE*+[id number].BRZ ordered. [facility] 19:15 18:22 06/29/2020 18:22 Discharged to Home. Impression: Coronavirus infection, ea unspecified; Pneumonia, unspecified organism. Condition is Stable. Forms are Medication Reconciliation Form, Thank You Letter, Antibiotic Education, Prescription Opioid Use. Follow up: Emergency Department; When: As needed; Reason: Worsening of condition. Follow up: Private Physician; When: 2 - 3 days; Reason: Recheck today's complaints, Continuance of care, Re-evaluation by your physician. kb
--- NOTE | 2020-06-29 18:23 | ER ---
Nurse's Notes [facility] Name: Aliza Hall Age: 60 yrs Sex: Female : 1960 Arrival Date: 06/29/2020 Time: 15:39 Bed 5 Private MD: Diagnosis: Coronavirus infection, unspecified;Pneumonia, unspecified organism Presentation: 06/29 15:46 Chief complaint: Patient states: Covid+ 06/28/2020. S/S started a week ago. SOB today. ca1 O2 sat at home 70% RA. Chest pains with coughing and deep breathing. Coronavirus screen: Client reports previous positive COVID test result. Date of collection: June 28, 2020 Staff notified of need for isolation. Ebola Screen: Patient negative for fever greater than or equal to 101.5 degrees Fahrenheit, and additional compatible Ebola Virus Disease symptoms Patient denies exposure to infectious person. Patient denies travel to an Ebola-affected area in the 21 days before illness onset. No symptoms or risks identified at this time. Initial Sepsis Screen: Does the patient meet any 2 criteria? No. Patient's initial sepsis screen is negative. Does the patient have a suspected source of infection? No. Patient's initial sepsis screen is negative. Risk Assessment: Do you want to hurt yourself or someone else? Patient reports no desire to harm self or others. Onset of symptoms was June 29, 2020. 15:46 Method Of Arrival: Ambulatory ca1 15:46 Acuity: LO 3 ca1 Triage Assessment: 16:00 General: Appears in no apparent distress. comfortable, Behavior is cooperative, bp appropriate for age, anxious. Pain: Denies pain. EENT: No deficits noted. Neuro: No deficits noted. Cardiovascular: Rhythm is sinus rhythm. Respiratory: Reports shortness of breath Onset: The symptoms/episode began/occurred at an unknown time. the patient has moderate shortness of breath. GI: No signs and/or symptoms were reported involving the gastrointestinal system. : No signs and/or symptoms were reported regarding the genitourinary system. Derm: No deficits noted. Musculoskeletal: No deficits noted. Historical: - Allergies: 15:49 No Known Allergies; ca1 - Home Meds: 15:49 None [Active]; ca1 - PMHx: 15:49 DVT; ca1 - PSHx: 15:49 Tonsillectomy; Tubal ligation; ca1 - Immunization history:: Flu vaccine is up to date. - Social history:: Smoking status: Patient denies any tobacco usage or history of. Screenin:00 Abuse screen: Denies threats or abuse. Denies injuries from another. Nutritional bp screening: No deficits noted. Tuberculosis screening: No symptoms or risk factors identified. Fall Risk None identified. Assessment: 16:00 General: SEE TRIAGE NOTE. bp 17:00 Reassessment: No changes from previously documented assessment. Patient and/or family bp updated on plan of care and expected duration. Pain level reassessed. Patient is alert, oriented x 3, equal unlabored respirations, skin warm/dry/pink. Cardiovascular: Rhythm is sinus rhythm. Respiratory: Airway is patent Respiratory effort is even, unlabored, Breath sounds with crackles bilaterally. 18:00 Reassessment: No changes from previously documented assessment. Patient and/or family bp updated on plan of care and expected duration. Pain level reassessed. Patient is alert, oriented x 3, equal unlabored respirations, skin warm/dry/pink. PT RETURNED FROM CT. 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 bp 19:13 Reassessment: Patient and/or family updated on plan of care and expected duration. Pain ea level reassessed. Patient is alert, oriented x 3, equal unlabored respirations, skin warm/dry/pink. Discharge instruction given to patient, verbalized the understanding of instruction. Vital Signs: 15:46 BP 126 / 106; Pulse 83; Resp 18 S; Temp 97.7(TE); Pulse Ox 98% on R/A; Weight 131.54 kg ca1 (R); Height 5 ft. 1 in. (154.94 cm) (R); Pain 6/10; 16:51 BP 129 / 73; Pulse 78; Resp 18; Pulse Ox 96% on R/A; mh5 18:00 BP 147 / 88; Pulse 81; Resp 16; Pulse Ox 99% ; bp 15:46 Body Mass Index 54.79 (131.54 kg, 154.94 cm) ca1 ED Course: 15:39 Patient arrived in ED. as 15:45 Kathrin Turner [facility]-C [facility] kb 15:45 Shahid Maria MD is Attending Physician. kb 15:48 Triage completed. ca1 15:49 Arm band placed on right wrist. ca1 16:00 Patient has correct armband on for positive identification. Bed in low position. Call bp light in reach. Side rails up X2. 16:04 Dileep Marie, RN is Primary Nurse. bp 16:25 Initial lab(s) drawn, by ia, sent to lab. Inserted saline lock: 20 gauge in right mh5 antecubital area, using aseptic technique. Blood collected. 16:26 Warm blanket given. food and beverage associate on. Pulse ox on. NIBP on. 5 16:27 Lactate Sent. mh5 16:28 Ferritin Sent. 5 16:28 CBC with Automated Diff Sent. 5 16:28 D-Dimer Sent. 5 16:28 C-Reactive Protein Sent. 5 16:28 Basic Metabolic Panel Sent. 5 16:28 Blood Culture Sent. 5 16:29 BMP Sent. 5 16:29 C-Reactive Protein Sent. 5 16:29 CBC with Diff Sent. 5 16:29 D-Dimer Sent. 5 16:30 Ferritin Sent. 5 16:30 Lactate Sent. 5 16:30 LFT's Sent. 5 16:30 Lipase Sent. 5 16:30 Procalcitonin Sent. 5 16:30 PT-INR Sent. 5 16:30 Ptt, Activated Sent. 5 16:30 Troponin (emerg Dept Use Only) Sent. 5 17:29 CXR XRAY In Process Unspecified. EDMS 18:06 CT Chest For PE Angio In Process Unspecified. EDMS 19:07 Primary Nurse role handed off by Dileep Marie, RN tt3 19:14 No provider procedures requiring assistance completed. IV discontinued, intact, ea bleeding controlled, No redness/swelling at site. Pressure dressing applied. Administered Medications: 17:04 Drug: NS 0.9% 500 ml Route: IV; Rate: bolus; Site: right forearm; bp 18:30 Follow up: IV Status: Completed infusion; IV Intake: 500ml bp 18:40 Drug: Rocephin 1 grams Route: IV; Rate: calculated rate; Site: right antecubital; bp 19:10 Follow up: Response: No adverse reaction; IV Status: Completed infusion ea 18:40 Drug: Zithromax 500 mg Route: PO; bp 19:10 Follow up: Response: No adverse reaction ea 18:40 Drug: SOLU-Medrol 125 mg Route: IVP; Site: right antecubital; bp 19:10 Follow up: Response: No adverse reaction ea Intake: 18:30 IV: 500ml; Total: 500ml. bp Outcome: 18:22 Discharge ordered by . tiff 19:14 Discharged to home ambulatory, with family. ea 19:14 Condition: stable 19:14 Discharge instructions given to patient, Instructed on discharge instructions, follow up and referral plans. medication usage, Demonstrated understanding of instructions, follow-up care, medications. 19:15 Patient left the ED. ea Signatures: Dispatcher [employer] EDMS Kathrin Turner, MAGAN-C PAINTING SUPERVISOR-Elena Pillai Maria [facility] Eva Liriano, NAVEED RN Dileep Blackburn, RN RN Louisa Miller, RN RN ca1 Theodore Monaco tt3 Corrections: (The following items were deleted from the chart) 16:29 16:28 BLOOD CULTURE*+[email or web address] drawn and sent. [address]
[2020-06-29] MEDS ORDERED: METHYLPREDNISOLONE 125 MG INJ ONE (18:57)
[2020-06-29] MEDS ORDERED: CEFTRIAXONE/SWI 1gm 1 GM/10 ML SYR ONE (18:58)
[2020-06-29] MEDS ORDERED: NA CHLORIDE 0.9% 100 ML ONE (18:58)
[2020-06-29] MEDS ORDERED: AZITHROMYCIN 250 MG TAB ONE (18:58)
[2020-06-29 19:34] VITALS: TEMP 97.7
[2020-06-29 19:36] VITALS: BP 147/88; O2SAT 99
--- NOTE | 2020-06-30 06:22 | EKG ---
Test Date: 2020-06-29 Test Time: 17:36:34 Applications Support Analyst: NOHEMI MEASUREMENT RESULTS: Intervals: Rate: 79 OH: 148 QRSD: 76 QT: 348 QTc: 399 Nixon: P: 61 OH: 148 QRS: 81 T: 17 INTERPRETIVE STATEMENTS: Normal sinus rhythm Normal ECG Compared to ECG 04/28/1996 18:07:00 Right-axis deviation no longer present Electronically Signed On 06-30-20 06:21:17 SHOE ASSOCIATE by Simba Hamilton
== END 2020-06-29 19:15 | disposition home or self-care (01) ==
LOC: ER 15:36
DX: U07.1 COVID-19 (principal); J18.9 Pneumonia, unspecified organism
CPT/HCPCS: 96365; 96361; 93005; 87040 ×2; 85025; 80048; 36415; 85610; 85379; 80076; 83605; 85730; 84484; 82728; 83690; 84145; 86140; 71275; 71045; 96375; 99284; Q9967; J0696; J7040; J2930

== ENCOUNTER 2020-07-02 20:07 | Observation (INO) | payer BC ==
--- OUTSIDE RECORDS SUMMARY | 2020-07-02 20:09 | XMS REPORT | Continuity of Care Document ---
:1960 Author Organization [facility] t Address [address] [place] [address] Care Team Providers Name Role Phone Renetta Centeno Attending Clinician Lab, Fam Pob I Attending Clinician Unavailable [...] Date/Time Type Type Clinicians Facility Department ID 2020-07-01 2020-07-01 Telephone Robert [facility] [id number] 00:00:00 00:00:00 Swapna Jackson [facility] [id number] [place] [id number] [place] [phone] nal [facility] [address] 2020-06-28 2020-06-28 Laboratory Lab, Adc [facility] [id number] 15:01:56 15:21:56 Only Fam Pob I Health [id number] [place] [id number] [place]io [phone] [place] [id number] [address] 2020-06-28 2020-06-28 Letter Doctor WAGNER [id number] 00:00:00 00:00:00 (Out) UnassDEANN ocampo [id number] [place] [facility] [id number] [id number] Results This patient has no known results.
--- NOTE | 2020-07-02 20:55 | RAD REPORT ---
EXAM DESCRIPTION: RAD - Chest Single View - 07/02/2020 8:46 pm CLINICAL HISTORY: Chest pain;Dyspnea Chest pain. COMPARISON: Chest Single View dated 06/29/2020 FINDINGS: Portable technique limits examination quality. Bilateral pulmonary opacities are present, slightly greater in the right upper lobe and appearing mil dly less prominent than on the comparative study. The heart is mildly prominent size.
[2020-07-02] MEDS ORDERED: dexAMETHasone 10 MG/ML VIAL ONE (21:03)
[2020-07-02] MEDS ORDERED: ASPIRIN 81 MG CHEWABLE TABLET ONE (21:03)
[2020-07-02] MEDS ORDERED: CEFTRIAXONE/SWI 1gm 1 GM/10 ML SYR ONE (21:03)
[2020-07-02] MEDS ORDERED: ENOXAPARIN 100 MG/ML SYR SQ ONE (21:03)
[2020-07-02] MEDS ORDERED: NA CHLORIDE 0.9% 1,000 ML ONE (21:03)
[2020-07-02] MEDS ORDERED: FAMOTIDINE 20 MG/2 ML VIAL IV ONE (21:03)
[2020-07-02 21:22] LABS: Absolute Lymphocytes (CBC) 1.2 K/uL (0.7-4.9); Basophils % 0.2 % (0-1.3); Hematocrit 46.6 % (36.0-45.0); Lymphocytes % 21.6 % (15.3-44.8); MPV 8.5 fL (7.6-11.3); RBC Red Blood Cell Count 5.39 M/uL (3.86-4.86)
[2020-07-02 21:26] LABS: Protime INR 0.97
[2020-07-02 21:42] LABS: ALT/SGPT 49 U/L (12-78); AST/SGOT 36 U/L (15-37); Albumin 3.5 g/dL (3.4-5.0); Alkaline Phosphatase 127 U/L (45-117); BUN Blood Urea Nitrogen 15 mg/dL (7-18); Bicarbonate 31 mmol/L (21-32); Bilirubin Direct 0.2 mg/dL (0-0.2); Bilirubin Total 0.4 mg/dL (0.2-1.0); Ferritin 84.3 ng/mL (8-388); Glucose Level 103 mg/dL (74-106); Lipase 104 U/L (73-393); Magnesium 2.1 mg/dL (1.8-2.4); NT PRO-BNP 43 pg/mL (<125); Potassium 3.1 mmol/L (3.5-5.1); Protein, Total 7.4 g/dL (6.4-8.2); Sodium Level 143 mmol/L (136-145); Troponin (Emerg Dept Use Only) < 0.02 ng/mL (0.0-0.045)
--- NOTE | 2020-07-02 23:04 | ER ---
Nurse's Notes [facility] Name: Aliza Hall Age: 60 yrs Sex: Female : 1960 Arrival Date: 07/02/2020 Time: 20:09 Bed 2 Private MD: Diagnosis: Dyspnea;Other viral pneumonia-bilateral, Covid 19;Chest pain, unspecified Presentation: 07/02 20:29 Chief complaint: Patient states: Covid positive for 2 weeks. SOB, fatigue, chest ll1 tightness continues since visit here Monday. Coronavirus screen: Client denies travel out of the [place] in the last 14 days. congestion, cough unrelated to allergies, difficulty breathing, fatigue, fever, Client presents with at least one sign or symptom that may indicate coronavirus-19. Ebola Screen: Patient denies exposure to infectious person. Patient denies travel to an Ebola-affected area in the 21 days before illness onset. Initial Sepsis Screen: Does the patient meet any 2 criteria? No. Patient's initial sepsis screen is negative. Does the patient have a suspected source of infection? Yes: Productive cough/pneumonia. Risk Assessment: Do you want to hurt yourself or someone else? Patient reports no desire to harm self or others. Onset of symptoms was June 18, 2020. 20:29 Method Of Arrival: Wheelchair ll1 20:29 Acuity: LO 3 ll1 Historical: - Allergies: 20:31 No Known Allergies; ll1 - PMHx: 20:31 DVT; ll1 - PSHx: 20:31 Tonsillectomy; Tubal ligation; ll1 - Immunization history:: Flu vaccine is up to date. - Social history:: Smoking status: Patient denies any tobacco usage or history of. - Family history:: not pertinent. Screenin:50 Abuse screen: Denies threats or abuse. Denies injuries from another. Nutritional mg2 screening: No deficits noted. Tuberculosis screening: No symptoms or risk factors identified. Fall Risk IV access (20 points). Assessment: 21:45 General: Appears in no apparent distress. comfortable, Behavior is calm, cooperative. mg2 Pain:. Neuro: Level of Consciousness is awake, alert, obeys commands, Oriented to person, place, time, situation. Respiratory: Airway is patent Respiratory effort is even, unlabored, Respiratory pattern is regular, symmetrical. Respiratory: Reports shortness of breath. GI: No signs and/or symptoms were reported involving the gastrointestinal system. : No signs and/or symptoms were reported regarding the genitourinary system. EENT: No signs and/or symptoms were reported regarding the EENT system. Derm: Skin is intact, is healthy with good turgor, Skin is pink, warm \T\ dry. normal. Musculoskeletal: Circulation, motion, and sensation intact. Capillary refill < 3 seconds. 23:28 General: patient states she had a covid test positive done at [facility] ED last Jun 28, 2020.mg2 Vital Signs: 20:29 BP 121 / 79; Pulse 76; Resp 18; Temp 99.4; Pulse Ox 96% on R/A; Weight 133.81 kg; ll1 Height 5 ft. 0 in. (152.40 cm); Pain 6/10; 22:49 BP 117 / 74; Pulse 74; Resp 18; Pulse Ox 95% on R/A; mg2 07/03 00:36 Pulse 75; Resp 18; Temp 99; Pulse Ox 94% on R/A; mg2 07/02 20:29 Body Mass Index 57.61 (133.81 kg, 152.40 cm) ll1 ED Course: 07/02 20:09 Patient arrived in ED. cl3 20:22 Colby Monson MD is Attending Physician. carine 20:30 Sj Parada, RN is Primary Nurse. 20:30 Triage completed. ll1 20:30 Arm band placed on Patient placed in an exam room, on a stretcher. ll1 20:44 XRAY Chest (1 view) In Process Unspecified. EDMS 21:02 Inserted saline lock: 20 gauge in left antecubital area, using aseptic technique. Blood oe collected. 22:52 Patient has correct armband on for positive identification. mg2 22:52 No provider procedures requiring assistance completed. mg2 23:01 Raomn Maria MD is Hospitalizing Provider. carine 23:11 Horace Kim DO is Hospitalizing Provider. la1 07/03 00:37 Patient admitted, IV remains in place. mg2 Administered Medications: 07/02 20:47 Drug: NS 0.9% 500 ml Route: IV; Rate: bolus; Site: left antecubital; 20:49 Drug: Dexamethasone 10 mg Route: IVP; Site: left antecubital; 20:51 Drug: Rocephin 1 grams Route: IV; Rate: per protocol; Site: left antecubital; 20:53 Drug: Pepcid 20 mg Route: IVP; Site: left antecubital; 20:55 Drug: Aspirin Chewable Tablet 162 mg Route: PO; 20:57 Drug: Lovenox 1 mg/kg {Note: Per MD just give 100 mg SQ of Lovenox.} Route: Sub-Q; Site: right lower abdomen; 20:59 CANCELLED (Duplicate Order): Dexamethasone 10 mg IM once 20:59 Not Given (Physician Discretion): Zithromax 500 mg IVPB once over 1 hrs; mix in 250 mL [facility] 21:24 Drug: NS 0.9% 1000 ml Route: IV; Rate: 125 ml/hr; Site: left antecubital; 23:03 Drug: Albuterol HFA Inhaler 4 puffs Route: Inhalation; mg2 23:03 Drug: Potassium Effervescent Tablet 50 mEq Route: PO; mg2 Outcome: 23:02 Decision to Hospitalize by Provider. carine 03 00:37 Admitted to Tele accompanied by tech, room 408, with chart, Report called to herbert unger RN Condition: stable Instructed on the need for admit, Demonstrated understanding of instructions. 00:44 Patient left the ED. mg2 Signatures: Dispatcher [employer] Colby Santos MD MD cha Attema, Lee, RN LAB-C RN LAB-Cla1 Ildefonso Griffin Winsy, RN RN Dennys Shah RN RN mg2 Lewis, Charde cl3 Lewis, Lynsay, RN RN ll1 Corrections: (The following items were deleted from the chart) 07/02 20:56 20:56 Lovenox 1 mg/kg Sub-Q in right lower abdomen [facility] 20:57 20:56 Lovenox 1 mg/kg Sub-Q in right lower abdomen [facility]
--- NOTE | 2020-07-02 23:04 | EDPHYS ---
Physician Documentation [facility] Name: Aliza Hall Age: 60 yrs Sex: Female : 1960 Arrival Date: 07/02/2020 Time: 20:09 Bed 2 Private MD: ED Physician Colby Monson HPI: 07/02 22:56 This 60 yrs old Female presents to ER via Wheelchair with complaints of cairne Breathing Difficulty, Chest Tightness. 22:56 The patient has shortness of breath at rest, with light activity. Onset: The carine symptoms/episode began/occurred 3 day(s) ago. Duration: The symptoms are continuous, and are steadily getting worse. The patient's shortness of breath is aggravated by coughing, exertion, light activity, supine position, is alleviated by nebulizer treatment, sitting up, application of supplemental oxygen. Associated signs and symptoms: The patient has no apparent associated signs or symptoms. Severity of symptoms: At their worst the symptoms were mild moderate in the emergency department the symptoms are unchanged. The patient has not experienced similar symptoms in the past. Historical: - Allergies: 20:31 No Known Allergies; ll1 - PMHx: 20:31 DVT; ll1 - PSHx: 20:31 Tonsillectomy; Tubal ligation; ll1 - Immunization history:: Flu vaccine is up to date. - Social history:: Smoking status: Patient denies any tobacco usage or history of. - Family history:: not pertinent. ROS: 22:56 Constitutional: Negative for fever, chills, and weight loss, Eyes: Negative for injury, carine pain, redness, and discharge, ENT: Negative for injury, pain, and discharge, Neck: Negative for injury, pain, and swelling, Abdomen/GI: Negative for abdominal pain, nausea, vomiting, diarrhea, and constipation, Back: Negative for injury and pain, : Negative for injury, bleeding, discharge, and swelling, MS/Extremity: Negative for injury and deformity, Skin: Negative for injury, rash, and discoloration, Neuro: Negative for headache, weakness, numbness, tingling, and seizure, Psych: Negative for depression, anxiety, suicide ideation, homicidal ideation, and hallucinations, Allergy/Immunology: Negative for hives, rash, and allergies, Endocrine: Negative for neck swelling, polydipsia, polyuria, polyphagia, and marked weight changes, Hematologic/Lymphatic: Negative for swollen nodes, abnormal bleeding, and unusual bruising. 22:56 Cardiovascular: Positive for chest pain. 22:56 Respiratory: Positive for cough, shortness of breath, on exertion. Exam: 22:56 Constitutional: This is a well developed, well nourished patient who is awake, alert, carine and in no acute distress. Head/Face: Normocephalic, atraumatic. Eyes: Pupils equal round and reactive to light, extra-ocular motions intact. Lids and lashes normal. Conjunctiva and sclera are non-icteric and not injected. Cornea within normal limits. Periorbital areas with no swelling, redness, or edema. ENT: Nares patent. No nasal discharge, no septal abnormalities noted. Tympanic membranes are normal and external auditory canals are clear. Oropharynx with no redness, swelling, or masses, exudates, or evidence of obstruction, uvula midline. Mucous membranes moist. Neck: Trachea midline, no thyromegaly or masses palpated, and no cervical lymphadenopathy. Supple, full range of motion without nuchal rigidity, or vertebral point tenderness. No Meningismus. Chest/axilla: Normal chest wall appearance and motion. Nontender with no deformity. No lesions are appreciated. Cardiovascular: Regular rate and rhythm with a normal S1 and S2. No gallops, murmurs, or rubs. Normal PMI, no JVD. No pulse deficits. Abdomen/GI: Soft, non-tender, with normal bowel sounds. No distension or tympany. No guarding or rebound. No evidence of tenderness throughout. Back: No spinal tenderness. No costovertebral tenderness. Full range of motion. Female : Normal external genitalia. Skin: Warm, dry with normal turgor. Normal color with no rashes, no lesions, and no evidence of cellulitis. MS/ Extremity: Pulses equal, no cyanosis. Neurovascular intact. Full, normal range of motion. Neuro: Awake and alert, GCS 15, oriented to person, place, time, and situation. Cranial nerves II-XII grossly intact. Motor strength 5/5 in all extremities. Sensory grossly intact. Cerebellar exam normal. Normal gait. Psych: Awake, alert, with orientation to person, place and time. Behavior, mood, and affect are within normal limits. 22:56 Respiratory: the patient does not display signs of respiratory distress, Respirations: normal, Breath sounds: decreased breath sounds, rhonchi, that are mild, are scattered, Respiratory rate: 18 07/03 00:26 ECG was reviewed by the Attending Physician. [facility] Vital Signs: 07/02 20:29 BP 121 / 79; Pulse 76; Resp 18; Temp 99.4; Pulse Ox 96% on R/A; Weight 133.81 kg; ll1 Height 5 ft. 0 in. (152.40 cm); Pain 6/10; 22:49 BP 117 / 74; Pulse 74; Resp 18; Pulse Ox 95% on R/A; mg2 07/03 00:36 Pulse 75; Resp 18; Temp 99; Pulse Ox 94% on R/A; mg2 07/02 20:29 Body Mass Index 57.61 (133.81 kg, 152.40 cm) ll1 MDM: 07/02 20:22 Patient medically screened. carine 22:59 Differential diagnosis: Anemia Anxiety Reaction Bronchitis CHF exacerbation, Myocardial carine Infarction pneumonia, pulmonary edema, Pulmonary Embolism reactive airway disease, Sepsis Unstable Angina. Antibiotic administration: Rocephin and Zithromax given. The patient's Wells Deep Vein Thrombosis Score was calculated as follows: Previous DVT/PE (1.5 Pts) Total Score: 0-2 Pts- Low Risk. The patient's pulmonary embolism risk score was calculated as follows: Total Score: 0-2 points. This patient was found to be at low risk for a pulmonary embolism by using the Well's assessment criteria. Immunization status: Influenza vaccine: Data reviewed: vital signs, nurses notes, diagnostic data from outside facility, old medical records, lab test result(s), EKG, radiologic studies, CT scan, plain films. Data interpreted: patient monitor: rate is 74 beats/min, rhythm is regular, Pulse oximetry: on room air is 95 %. Test interpretation: by ED physician or midlevel provider: ECG, plain radiologic studies. 07/02 20:28 Order name: Basic Metabolic Panel [facility] 07/02 20:28 Order name: CBC with Diff [facility] 07/02 20:28 Order name: LFT's [facility] 07/02 20:28 Order name: Magnesium [facility] 07/02 20:28 Order name: NT PRO-BNP [facility] 07/02 20:28 Order name: PT-INR [facility] 07/02 20:28 Order name: Troponin (emerg Dept Use Only) 07/02 20:28 Order name: Blood Culture Adult (2) 07/02 20:28 Order name: CRP carine 07/02 20:28 Order name: Ferritin 07/02 20:28 Order name: Lipase; Complete Time: 22:50 carine 07/02 20:28 Order name: Lactate; Complete Time: 22:50 carine 07/02 20:29 Order name: Basic Metabolic Panel; Complete Time: 22:50 EDMS 07/02 20:28 Order name: XRAY Chest (1 view); Complete Time: 22:50 carine 07/02 20:29 Order name: CBC with Automated Diff; Complete Time: 22:50 EDMS 07/02 20:29 Order name: Liver (Hepatic) Function; Complete Time: 22:50 EDMS 07/02 20:29 Order name: Magnesium; Complete Time: 22:50 EDMS 07/02 20:29 Order name: NT PRO-BNP; Complete Time: 22:50 EDMS 07/02 20:29 Order name: Protime (+INR); Complete Time: 22:50 EDMS 07/02 20:29 Order name: Troponin (Emerg Dept Use Only); Complete Time: 22:50 EDMS 07/02 20:29 Order name: Blood Culture EDMS 07/02 20:29 Order name: C-Reactive Protein; Complete Time: 22:50 EDMS 07/02 20:29 Order name: Ferritin; Complete Time: 22:50 EDMS 07/02 20:28 Order name: EKG; Complete Time: 20:30 carine 07/02 20:28 Order name: Cardiac monitoring; Complete Time: 20:41 carine 07/02 20:28 Order name: EKG - Nurse/Tech; Complete Time: 20:41 carine 07/02 20:28 Order name: IV Saline Lock; Complete Time: 20:41 carine 07/02 20:28 Order name: Labs collected and sent; Complete Time: 20:41 carine 07/02 20:28 Order name: O2 Per Protocol; Complete Time: 20:41 carine 07/02 20:28 Order name: O2 Sat Monitoring; Complete Time: 20:42 carine EC/05 00:26 Rate is 77 beats/min. Rhythm is regular. QRS [place] is Normal. CO interval is normal. QRS carine interval is normal. QT interval is normal. No Q waves. T waves are Normal. No ST changes noted. Clinical impression: NSR w/ Non-specific ST/T Changes and No evidence of ischemia. Interpreted by me. Reviewed by me. Administered Medications: 07/02 20:47 Drug: NS 0.9% 500 ml Route: IV; Rate: bolus; Site: left antecubital; 20:49 Drug: Dexamethasone 10 mg Route: IVP; Site: left antecubital; 20:51 Drug: Rocephin 1 grams Route: IV; Rate: per protocol; Site: left antecubital; 20:53 Drug: Pepcid 20 mg Route: IVP; Site: left antecubital; 20:55 Drug: Aspirin Chewable Tablet 162 mg Route: PO; 20:57 Drug: Lovenox 1 mg/kg {Note: Per MD just give 100 mg SQ of Lovenox.} Route: Sub-Q; Site: right lower abdomen; 20:59 CANCELLED (Duplicate Order): Dexamethasone 10 mg IM once 20:59 Not Given (Physician Discretion): Zithromax 500 mg IVPB once over 1 hrs; mix in 250 mL NS 21:24 Drug: NS 0.9% 1000 ml Route: IV; Rate: 125 ml/hr; Site: left antecubital; 23:03 Drug: Albuterol HFA Inhaler 4 puffs Route: Inhalation; mg2 23:03 Drug: Potassium Effervescent Tablet 50 mEq Route: PO; mg2 Disposition: 07/02/20 23:02 Hospitalization ordered by Horace Kim for Observation. Preliminary diagnosis are Dyspnea, Other viral pneumonia - bilateral, Covid 19, Chest pain, unspecified. - Bed requested for Telemetry/MedSurg (observation). - Status is Observation. mg2 - Condition is Fair. - Problem is new. - Symptoms have improved. Signatures: Dispatcher [employer] EDMS Colby Monson MD MD cha Attema, Lee, CORK TIPPER-C CORK TIPPER-Cla1 Sarah Bell, RN RN Sj Parada RN RN Dennys Shah RN RN [facility] [place] Jami Holcomb RN RN ll1 Corrections: (The following items were deleted from the chart) 20:59 20:28 Dexamethasone 10 mg IM once ordered. [facility] 23:11 23:02 Hospitalization Ordered by Ramon Maria MD for Observation. Preliminary la1 diagnosis is Dyspnea; Other viral pneumonia - bilateral, Covid 19; Chest pain, unspecified. Bed requested for Telemetry/MedSurg (observation). Status is Observation. Condition is Fair. Problem is new. Symptoms have improved. carine 07/03 00:15 03/04 23:11 07/02/2020 23:02 Hospitalization Ordered by Horace Kim DO for cg Observation. Preliminary diagnosis is Dyspnea; Other viral pneumonia - bilateral, Covid 19; Chest pain, unspecified. Bed requested for Telemetry/MedSurg (observation). Status is Observation. Condition is Fair. Problem is new. Symptoms have improved. la1 07/03 00:44 00:15 07/02/2020 23:02 Hospitalization Ordered by Horace Kim DO for Observation. mg2 Preliminary diagnosis is Dyspnea; Other viral pneumonia - bilateral, Covid 19; Chest pain, unspecified. Bed requested for Telemetry/MedSurg (observation). Status is Observation. Condition is Fair. Problem is new. Symptoms have improved. cg
[2020-07-02] MEDS ORDERED: ALBUTEROL INHALER 60 PUFF/8 GM IH ONE (23:12)
[2020-07-02] MEDS ORDERED: POTASSIUM 25 MEQ EFFERV TAB ONE (23:12)
--- NOTE | 2020-07-03 00:15 | P.HP ---
Certification for Inpatient Patient admitted to: Observation With expected LOS: <2 Midnights Patient will require the following post-hospital care: None Practitioner: I am a practitioner with admitting privileges, knowledge of patient current condition, hospital course, and medical plan of care. Services: Services provided to patient in accordance with Admission requirements found in Title 42 Section 412.3 of the Code of Federal Regulations Patient History Date of Service: 07/03/20 Primary Care Provider: Dr. Shrestha Reason for admission: COVID pneumonia History of Present Illness: 60-year-old female with no significant past medical history presents emergency department for shortness of breath. Patient reports testing positive for Farrell virus on 06/29/2020 with progressive shortness of breath since then. Patient was seen in the emergency department here approximately [address] days prior and had CT PE protocol which was negative for pulmonary embolism to suggest viral pneumonia. Patient reports ongoing fevers and shortness of breath at home, was evaluated in the emergency room found to have mildly low potassium 3.1 C- reactive protein 41.3 white blood cell count the normal limits. Patient saturating in the low 90s on room air feeling short of breath, ED provider wishes to admit under observation for further evaluation and management. 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 moist/pink Neck: Supple, 2+ carotid pulse no bruit, No LAD Respiratory: Clear to auscultation bilaterally, Normal air movement Cardiovascular: Regular rate/rhythm, Normal S1 S2 Gastrointestinal: Normal bowel sounds, No tenderness Musculoskeletal: No tenderness Integumentary: No rashes Neurological: Normal speech, Normal strength at 5/5 x4 extr, Normal tone, Normal affect - Studies Laboratory Data (last 24 hrs) 07/02/20 20:56: PT 11.1, INR 0.97 07/02/20 20:56: WBC 5.50 D, Hgb 15.4 H, Hct 46.6 H, Plt Count 160 07/02/20 20:56: Sodium 143, Potassium 3.1 L, BUN 15, Creatinine 0.60, Glucose 103, Magnesium 2.1, Total Bilirubin 0.4, AST 36, ALT 49, Alkaline Phosphatase 127 H, Lipase 104 Assessment and Plan - Plan Assessment Dyspnea secondary to COVID-19 pneumonia Plan Dyspnea secondary to COVID-19 pneumonia: Trends CRP, ferritin levels. Continue with IV steroids, oral supplements, daily aspirin. Supplemental oxygen as needed, daily room air saturations in room air saturations for home oxygen. Patient can likely be discharged tomorrow with or without home oxygen depending on if she qualifies or not. Patient declined Ivermectin therapy. DVT prophylaxis Lovenox 40 mg subcutaneous once daily. Patient does have history of DVT many years prior, head CT PE protocol 2 days prior negative for pulmonary embolism. Discharge Plan: Home Plan to discharge in: 24 Hours - Advance Directives Does patient have a Living Will: No Does patient have a Durable POA for Healthcare: No - Code Status/Comfort Care Code Status Assessed: Yes (Full code) Critical Care: No Time Spent Managing Pts Care (In Minutes): 55
[2020-07-03] MEDS ORDERED: ONDANSETRON 4 MG/2 ML VIAL IV PRN (01:07)
[2020-07-03] MEDS ORDERED: MELATONIN 5 MG TABLET PO PRN (01:07)
[2020-07-03] MEDS ORDERED: BENZONATATE 100 MG CAP PO PRN (01:07)
[2020-07-03] MEDS ORDERED: ACETAMINOPHEN 500 MG TAB PO PRN (01:07)
[2020-07-03 01:36] VITALS: BMI 53.2
[2020-07-03 04:03] LABS: Absolute Lymphocytes (CBC) 0.6 K/uL (0.7-4.9); Basophils % 0.3 % (0-1.3); Hematocrit 44.9 % (36.0-45.0); Lymphocytes % 14.4 % (15.3-44.8)
[2020-07-03 04:32] LABS: BUN Blood Urea Nitrogen 14 mg/dL (7-18); Bicarbonate 30 mmol/L (21-32); Ferritin 85.1 ng/mL (8-388); Glucose Level 176 mg/dL (74-106); Potassium 3.7 mmol/L (3.5-5.1); Sodium Level 143 mmol/L (136-145)
[2020-07-03 04:36] VITALS: O2SAT 92
[2020-07-03] MEDS ORDERED: POTASSIUM 25 MEQ EFFERV TAB PO ONE (06:00)
--- NOTE | 2020-07-03 08:29 | P.DS ---
Admission Date: 07/03/20 Discharge Date: 07/03/20 Primary Care Provider: Dr. Shrestha Disposition: ROUTINE DISCHARGE Discharge Condition: GOOD Reason for Admission: COVID pneumonia Consultations: none Procedures: COVID: Positive CXR: FINDINGS: Portable technique limits examination quality. Bilateral pulmonary opacities are present, slightly greater in the right upper lobe and appearing mildly less prominent than on the comparative study. The heart is mildly prominent size. CT Scan 06/29/2020: COMPARISON: No comparisons TECHNIQUE: CT angiogram of the pulmonary arteries was performed with MIP. All CT scans are performed using dose optimization technique as appropriate and may include automated exposure control or mA/KV adjustment according to patient size. FINDINGS: No evidence of pulmonary thromboembolism. No acute aortic finding demonstrated. There is a moderate sized area of consolidation in the posterior right upper lobe. There is a small infiltrate in the medial left lung base. No significant pericardial or pleural fluid. No concerning bony finding. Prominent left hepatic lobe cyst. IMPRESSION: No evidence of pulmonary thromboembolism. Moderate sized area of lung consolidation posterior right upper lobe most likely representing pneumonia. Small infiltrate also present medial left base. Medical Problem List: Dyspnea secondary to bilateral COVID 19 pneumonia Brief History of Present Illness: 60-year-old female with no significant past medical history presents emergency department for shortness of breath. Patient reports testing positive for Farrell virus on 06/29/2020 with progressive shortness of breath since then. Patient was seen in the emergency department here approximately [address] days prior and had CT PE protocol which was negative for pulmonary embolism to suggest viral pneumonia. Patient reports ongoing fevers and shortness of breath at home, was evaluated in the emergency room found to have mildly low potassium 3.1 C- reactive protein 41.3 white blood cell count the normal limits. Patient saturating in the low 90s on room air with some desaturations. Patient admitted for observation. Hospital Course: Patient presented with dyspnea. Patient recently diagnosed with COVID 19 after she was having fever, body aches and shortness of breath. Patient had been treated by her PCP. Her symptoms continued to worsen. She was seen in the ER for further evaluation and treatment. Room-air saturations within normal range. Recent CT scan was negative for pulmonary embolism. Chest x-ray showed bilateral viral pneumonia. Patient was admitted for observation. Patient has done well. No significant shortness of breath noted. No further intervention required. Patient received IV steroids and supplementation. At discharge patient will continue with prednisone 20 mg 1 pill twice daily for 7 days then 1 pill once daily for 7 days. The patient will also be provided Tessalon Perles 100 mg 3 times a day as needed for cough and Pro air 2 puffs 3 times a day as needed for shortness of breath. The patient will continue with oral supplementation including vitamin-C 500 mg 3 times a day, vitamin-D 2000 units daily, melatonin 5 mg at bedtime, zinc 220 mg daily, and thiamine 200 mg daily. Prior to discharge will see if patient qualifies for home oxygen. If so home oxygen will be arranged to maintain sats above 93%. Patient will continue with incentive spirometer. Recommend to continue proning, face mask use, social distancing, and hand washing. Patient will continue with CDC guidelines on COVID 19 isolation and education. Recommend follow up with her PCP in 1 week to monitor her progress. Patient will also be provided contact information to pulmonology so that she may follow up and to further address her COVID condit ion. Patient will need to remain isolated for at least 10 days. Vital Signs/Physical Exam: Temp Pulse Resp BP Pulse Ox 97.8 F 69 17 113/62 92 07/03/20 04:00 07/03/20 04:00 07/03/20 04:00 07/03/20 04:00 07/03/20 04:00 General: Alert, In no apparent distress, Oriented x3, Cooperative HEENT: Atraumatic Neck: Supple Respiratory: Other (Patient does not appear in any distress. No respiratory issues noted) Cardiovascular: Regular rate/rhythm Gastrointestinal: Normal bowel sounds, No guarding Integumentary: No tenderness/swelling Neurological: Normal speech, Normal strength at 5/5 x4 extr, Normal tone, Normal affect Laboratory Data at Discharge: WBC 4.10 K/uL (4.3-10.9) L D 07/03/20 03:28 Hgb 14.8 g/dL (12.0-15.0) 07/03/20 03:28 Hct 44.9 % (36.0-45.0) 07/03/20 03:28 Plt Count 154 K/uL (152-406) 07/03/20 03:28 PT 11.1 SECONDS (9.5-12.5) 07/02/20 20:56 INR 0.97 07/02/20 20:56 Sodium 143 mmol/L (136-145) 07/03/20 03:28 Potassium 3.7 mmol/L (3.5-5.1) 07/03/20 03:28 BUN 14 mg/dL (7-18) 07/03/20 03:28 Creatinine 0.54 mg/dL (0.55-1.3) L 07/03/20 03:28 Glucose 176 mg/dL (74-106) H 07/03/20 03:28 Magnesium 2.1 mg/dL (1.8-2.4) 07/02/20 20:56 Total Bilirubin 0.4 mg/dL (0.2-1.0) 07/02/20 20:56 AST 36 U/L (15-37) 07/02/20 20:56 ALT 49 U/L (12-78) 07/02/20 20:56 Alkaline Phosphatase 127 U/L (45-117) H 07/02/20 20:56 Lipase 104 U/L (73-393) 07/02/20 20:56 Home Medications: Albuterol Sulfate [Albuterol Sulfate Hfa] 6.7 gm IH Q4HR PRN 07/03/20 Ascorbic Acid [Vitamin C*] 500 mg PO TID #90 tablet 07/03/20 Aspirin [Aspirin EC 81 MG] 81 mg PO DAILY #90 tablet. 07/03/20 Benzonatate [Tessalon Perle*] 100 mg PO TID PRN #15 cap 07/03/20 Cholecalciferol (Vitamin D3) [Vitamin D 1000 Iu Tab*] 2,000 unit PO DAILY #60 tab 07/03/20 Melatonin 5 mg PO BEDTIME #30 tablet 07/03/20 Thiamine HCl [Vitamin B-1*] 200 mg PO DAILY #60 tablet 07/03/20 Zinc Sulfate [Zinc Sulfate*] 220 mg PO DAILY #30 cap 07/03/20 predniSONE [Prednisone*] 20 mg PO SEECOM #21 tab 07/03/20 New Medications: Aspirin [Aspirin EC 81 MG] 81 mg PO DAILY #90 tablet. Melatonin 5 mg PO BEDTIME #30 tablet predniSONE [Prednisone*] 20 mg PO SEECOM #21 tab Benzonatate [Tessalon Perle*] 100 mg PO TID PRN #15 cap PRN Reason: Cough Thiamine HCl [Vitamin B-1*] 200 mg PO DAILY #60 tablet Ascorbic Acid [Vitamin C*] 500 mg PO TID #90 tablet Cholecalciferol (Vitamin D3) [Vitamin D 1000 Iu Tab*] 2,000 unit PO DAILY #60 tab Zinc Sulfate [Zinc Sulfate*] 220 mg PO DAILY #30 cap Physician Discharge Instructions: Patient presented with dyspnea. Patient recently diagnosed with COVID 19 after she was having fever, body aches and shortness of breath. Patient had been treated by her PCP. Her symptoms continued to worsen. She was seen in the ER for further evaluation and treatment. Room-air saturations within normal range. Recent CT scan was negative for pulmonary embolism. Chest x-ray showed bila teral viral pneumonia. Patient was admitted for observation. Patient has done well. No significant shortness of breath noted. No further intervention required. Patient received IV steroids and supplementation. At discharge patient will continue with prednisone 20 mg 1 pill twice daily for 7 days then 1 pill once daily for 7 days. The patient will also be provided Tessalon Perles 100 mg 3 times a day as needed for cough and Pro air 2 puffs 3 times a day as needed for shortness of breath. The patient will continue with oral supplementation including vitamin-C 500 mg 3 times a day, vitamin-D 2000 units daily, melatonin 5 mg at bedtime, zinc 220 mg daily, and thiamine 200 mg daily. Prior to discharge will see if patient qualifies for home oxygen. If so home oxygen will be arranged to maintain sats above 93%. Patient will continue with incentive spirometer. Recommend to continue proning, face mask use, social distancing, and hand washing. Patient will continue with CDC guidelines on COVID 19 isolation and education. Recommend follow up with her PCP in 1 week to monitor her progress. Patient will also be provided contact information to pulmonology so that she may follow up and to further address her COVID condition. Patient will need to remain isolated for at least 10 days. Diet: Regular Activity: Ad fausto Followup: Sabino Shrestha MD [Primary Care Provider] - Time spent managing pt's care (in minutes): 55
[2020-07-03 08:51] VITALS: BP 141/76; TEMP 97.9
[2020-07-03] MEDS ORDERED: ENOXAPARIN 40 MG/0.4 ML SQ SCH (09:00)
[2020-07-03] MEDS ORDERED: VITAMIN D 1000 UNIT TAB PO SCH (09:00)
[2020-07-03] MEDS ORDERED: THIAMINE HCL 100 MG TABLET PO SCH (09:00)
[2020-07-03] MEDS ORDERED: ZINC SULFATE 220 MG CAP PO SCH (09:00)
[2020-07-03] MEDS ORDERED: ASPIRIN EC 81 MG TAB PO SCH (09:00)
[2020-07-03] MEDS ORDERED: ASCORBIC ACID 500 MG TABLET PO SCH (09:00)
[2020-07-03] MEDS ORDERED: METHYLPREDNISOLONE 40 MG INJ IV SCH (09:00)
== END 2020-07-03 09:55 | disposition home or self-care (01) ==
LOC: ER 20:07 → 4TH 07-03 00:06
PROVIDERS: ADMIT Family Medicine; ATTEND Family Medicine
DX: U07.1 COVID-19 (principal); Z12.82 Encounter for screening for malignant neoplasm of nervous system; E87.6 Hypokalemia
CPT/HCPCS: 93005; 87040 ×2; 85025 ×2; 80048 ×2; 36415; 83735; 85610; 80076; 83605; 84484; 82728 ×2; 83690; 84145; 83880; 86140 ×2; 71045; J1650 ×2; J1100; J0696; J7030; J2920; 96372; 96374; 96375; 99285; G0378